=== PATIENT | female | born 1960 | race Caucasian/White ===

== ENCOUNTER 2017-04-10 16:44 | Inpatient (IN) | payer BC, OTHER ==
--- NOTE | 2017-04-10 19:39 | ED ---
Progress - Progress Note Progress Note: Assumed care at 1900. Pt undergoing MH eval. MH eval completed at 1936, accepted for admission after evaluation. Has been stable here. - Consult/PCP Time Called: 18:15 Course/Dx - Course Course Of Treatment: MH eval here. Accepted for admission and paperwork filed. - Diagnoses Provider Diagnoses: Suicidal ideation, Adjustment disorder with depressed mood
[2017-04-10] MEDS ORDERED: Nicotine Inhaler* 10 MG AMP INH ONE (20:00)
[2017-04-10] MEDS ORDERED: Mouth Piece, Nicotine* 1 EACH CARTRIDGE INH PRN (20:00)
[2017-04-10] MEDS ORDERED: Nicotine Inhaler* 10 MG AMP ONE (20:17)
[2017-04-10] MEDS ORDERED: Nicotine GUM* 2 MG PO PRN (20:31)
[2017-04-10] MEDS ORDERED: Mouth Piece, Nicotine* 1 EACH CARTRIDGE INH SCH (20:31)
[2017-04-10] MEDS ORDERED: Al Hydrox/Mg Hydrox/Simet LIQ* 30 ML UDC PO PRN (20:31)
[2017-04-10] MEDS ORDERED: Acetaminophen TAB* 325 MG PO PRN (20:31)
[2017-04-10] MEDS: cloNIDine TAB* 0.1 MG PO SCH (21:41)
[2017-04-10] MEDS: lamoTRIgine TAB(*) 100 MG PO SCH (21:41)
--- NOTE | 2017-04-10 21:41 | ED ---
Isi Dietz Jason, scribed for Layla Leonard MD on 04/10/17 at 1735 . Psychiatric Complaint - HPI Summary HPI Summary: This patient is a 56 year old F presenting to [facility] [place] ambulance from [place] [facility] for mental health evaluation with a chief complaint of depression and SI since a few months ago. The patient states her grandson and daughter live with her and she doesnt get along with them, including my grandson doesnt want to live with me. In February 2017 she states she took some pills of hers in a suicide gesture, but did not report it to anyone at the time and did not seek medical attention following this. Pt lives in [place] and has regular care with the mental health clinic in [place] and is compliant with taking medications of Lamictal and Clonidine and citalopram. She does not relate a specific incident that brought her to the [place] ED today other than family troubles. Regarding suicide, she states I think about it but I dont think I can do it. When asked if she had a plan for suicide, she stated she would take pills, crash my car, or use a razor. With respect to her family life, she states that last year her sons father committed suicide by overdosing on pills, her stepsister hung herself, and her grandsons father committed suicide using a gun. Additionally, her boyfriend suddenly in 2014. She also states she has had a tubal ligation and Lasik surgery. The patient rates the pain 0/10 in severity. Symptoms aggravated by social stresses. Symptoms alleviated by nothing. Pt states she has a remote hx of substance abuse and alcohol abuse in the but none in many years. Patient reports suicidal ideation, Increased urinary frequency, and urinary burning. Patient denies hematuria. Pt was initially brought to the [place] ED by her brother Wilber, and agrees to see her brother when he presents to the [facility]. Pt was evaluated in the [place] ED by ONI Berg, and transferred to [facility] after discussion with me by phone. Her labs and medical clearance were completed in [place] and pt was started on Cipro for a UTI by Ian BUNN. Pt was calm and cooperative but tearful throughout her [place] ED visit, transport by EMS and upon presentation to the [facility]. Pt's [place] records and labs were reviewed by me upon presentation to [facility]. [place] labs are not visible in [facility] but are available in print form for my review. - History Of Current Complaint Chief Complaint: EDMentalHealth Time Seen by Provider: 04/10/17 16:59 Hx Obtained From: Patient, Medical Records, Other: - discussion with Ian BUNN, provider in [place] ED. ?: No Onset/Duration: Gradual Onset - a few months, Worse Since - today Timing: Constant Severity Initially: Moderate Severity Currently: Severe Character: Depressed Aggravating Factor(s): Recent Stress - family life Alleviating Factor(s): Nothing Associated Signs And Symptoms: Positive: Appetite Change, Social Withdrawal Related History: Positive For: Prior Psychiatric Issues Has Suicidal: Reports: Thoughts, With A Plan Ingestion History: Type/Name Of Drug - clonidine, Amount Ingested - several, Approximate Time Of Ingestion - Feb 2017, none today - Allergies/Home Medications Allergies/Adverse Reactions: Allergies Allergy/AdvReac Type Severity Reaction Status Date / Time MS Sulfamethoxazole Allergy Rash Verified 10/02/14 07:59 w/Trimethoprim [From Bactrim] Home Medications: Home Medications Ciproflox/Dexameth OTIC.SUSP* [Ciprodex Otic*] 1 drop BOTH EYES BID 04/10/17 [ History Confirmed 04/10/17] cloNIDine TAB* [Catapres 0.1 MG TAB*] 0.1 mg PO BEDTIME 04/10/17 [History Confirmed 04/10/17] lamoTRIgine TAB(*) [LaMICtal TAB(*)] 200 mg PO BEDTIME 04/10/17 [History Confirmed 04/10/17] PMH/Surg Hx/FS Hx/Imm Hx Previously Healthy: No Musculoskeletal History: Reports: Other Musculoskeletal History - PLATE IN NECK IN 1999- DR CARROLL Sensory History: Reports: Hx Cataracts, Hx Contacts or Glasses - GLASSES Denies: Hx Hearing Aid Opthamlomology History: Reports: Hx Cataracts, Hx Contacts or Glasses - GLASSES Psychiatric History: Reports: Hx Anxiety - ON MEDS, Hx Depression - ON MEDS - Surgical History Surgery Procedure, Year, and Place: 1999- [facility] [place]. TUBAL LIGATION- [place] Hx Anesthesia Reactions: Yes - STATES TAKES AWHILE TO COME OUT OF IT; SOME VOMITING - Immunization History Date of Tetanus Vaccine: unknown Date of Influenza Vaccine: NO Infectious Disease History: No Infectious Disease History: Denies: Traveled Outside the [place] in Last 30 Days - Family History Known Family History: Positive: Hypertension, Diabetes, Other - cancer - Social History Lives: With Family Alcohol Use: None Substance Use Type: Reports: None Smoking Status (MU): Heavy Every Day Tobacco Smoker Amount Used/How Often: 1 PPD X40 YEARS Review of Systems Negative: Fever Cardiovascular: Negative Respiratory: Negative Gastrointestinal: Negative Positive: burning, frequency Skin: Negative Neurological: Negative Positive: Depressed, Other - SI All Other Systems Reviewed And Are Negative: Yes Physical Exam - Summary Physical Exam Summary: Appearance: depressed appearing, no pain distress, Well-nourished, tearful, poor eye contact, afebrile Skin: Warm, color reflects adequate perfusion Head: Normal Head/Face inspection Eyes: Conjunctiva clear ENT: Normal inspection Neck: Supple, no nodes, no JVD. Respiratory: Lungs clear, Normal breath sounds, no respiratory distress Cardio: RRR, No murmur, pulses normal, brisk capillary refill Abdomen: soft, nontender, No CVAT Bowel sounds: present Musculoskeletal: Strength Intact/ ROM intact. No calf tenderness. No edema. Neuro: Alert, muscle tone normal, facial symmetry, speech normal, sensory/motor intact Psychological: depressed Triage Information Reviewed: Yes Vital Signs On Initial Exam: Initial Vitals Temp Pulse Resp BP Pulse Ox 99.1 F 108 16 140/102 99 04/10/17 16:46 04/10/17 16:46 04/10/17 16:46 04/10/17 16:46 04/10/17 16:46 Vital Signs Reviewed: Yes Diagnostics - Vital Signs Vital Signs Temp Pulse Resp BP Pulse Ox 04/10/17 16:46 99.1 F 108 16 140/102 99 - Laboratory Lab Statement: Any lab studies that have been ordered have been reviewed, and results considered in the medical decision making process. Course/Dx - Course Course Of Treatment: Pt was cleared for a MHE at 1728. Medications reviewed. Allergies noted. Pt with depression not responding to outpatient medication and therapy, self reported medication overdose in Feb 2017 that was not previously reported to medical personnel, transferred from [facility] ED via EMS for worsening depression and suicidal ideation with a plan. Pt is signed out to Dr. Woods at 1900 04/10/17, pending mental health evaluation. Pt has UTI based on urinalysis and symptoms and was started on oral cipro at [facility]. She has no signs or symptoms of pyelonephritis or sepsis. UTI treatment can safely continued on U if pt is admitted. Pt is a smoker and requests nicotine replacement. - Differential Dx/Clinical Impression Differential Diagnosis/HQI/PQRI: Positive: Depression, Suicidal Ideation Provider Diagnosis: Suicidal ideation, Adjustment disorder with depressed mood, UTI (urinary tract infection) Discharge - Discharge Plan Condition: Fair Disposition: OTHER Discharge Disposition Comment: Patient is signed out to Dr. Woods , pending disposition, awaiting MHE Referrals: José Antonio Feng MD [Primary Care Provider] - The documentation as recorded by the Isi hill Jason accurately reflects the service I personally performed and the decisions made by me, Layla Leonard MD.
[2017-04-10] MEDS: Nicotine Inhaler* 10 MG AMP INH PRN (21:43)
[2017-04-11] MEDS: Vitamin THERAPEUTIC TAB PO SCH (08:00)
[2017-04-11] MEDS: Ciprofloxacin TAB* 500 MG PO SCH ×2 (08:00→22:44)
[2017-04-11] MEDS: Nicotine Inhaler* 10 MG AMP INH PRN ×5 (08:00→22:43)
[2017-04-11] MEDS ORDERED: Citalopram TAB* 20 MG PO SCH (09:00)
--- NOTE | 2017-04-11 11:36 | PN ---
MHU: Group Therapy Note - Service Type Service Type: [id number] Group Psychotherapy - Cognitive Behavioral Group Therapy ( CBT):Patient was attentive and participatory in CBT programming this morning, and remained in good behavioral control. Patient expressed positive insights regarding relevant treatment interventions and goals.
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
[2017-04-11] MEDS: lamoTRIgine TAB(*) 100 MG PO SCH (22:45)
[2017-04-11] MEDS: cloNIDine TAB* 0.1 MG PO SCH (22:45)
[2017-04-12] MEDS: Nicotine Inhaler* 10 MG AMP INH PRN ×4 (07:49→21:06)
[2017-04-12] MEDS: Ciprofloxacin TAB* 500 MG PO SCH ×2 (08:24→20:55)
[2017-04-12] MEDS: Vitamin THERAPEUTIC TAB PO SCH (08:24)
[2017-04-12] MEDS: Citalopram TAB* 40 MG PO SCH (08:26)
[2017-04-12] MEDS ORDERED: Influenza VAC *QUAD* 2017-18* 0.5 ML SYRINGE IM ONE (09:00)
--- NOTE | 2017-04-12 11:13 | PN ---
MHU: Group Therapy Note - Service Type Service Type: [id number] Group Psychotherapy - Cognitive Behavioral Group Therapy ( CBT):Patient was attentive and participatory in CBT programming this morning, and remained in good behavioral control. Patient expressed positive insights regarding relevant treatment interventions and goals.
[2017-04-12] MEDS ORDERED: hydrOXYzine HCL TAB* 25 MG PO PRN (12:45)
--- NOTE | 2017-04-12 13:31 | PN ---
Subjective - Subjective Date of Service: 04/12/17 Service Type: [id number] Hosp care 15 min low complexity Subjective: Yvonne is sitting in the milieu by herself. Upon talking for a little while, she becomes tearful and begins to cry in earnest. She states she is worrying all the time and now the word "Satan" pops in her head now and then. It is alarming to her, as she is Confucianism and believes in God. She also complains of not sleeping very well. She states she can't get to sleep because her thoughts are racing. Objective - Appearance Appearance: Healthy Appearing Dysmorphic Features: No Hygiene: Normal Grooming: Fairly Well Kept - Behavior Psychomotor Activities: Normal Exhibits Abnormal Movement: No - Attitude and Relatedness Attitude and Relatedness: Needy Eye Contact: Good - Speech Quality: Unpressured Latencies: Normal Quantity: Appropriate - Mood Patient's Decription of Mood: "Anxious" - Affect Observed Affect: Tearful Affect Consistent with: Dysphoria - Thought Process Patient's Thought Process: Coherent Thought Content: No Passive Wish, No Suicidal Planning, No Homicidal Ideation, No Paranoid Ideation - Sensorium Experiencing Hallucinations: No, Sensorium is Clear Type of Hallucinations: Visual: No, Auditory: No, Command: No - Level of Consciousness Level of Consciousness: Alert Orientation: Yes Intact, Yes Orientated to Time, Yes Orientated to Place, Yes Orientated to Person - Impulse Control Impulse Control: Intact - Insight and Judgement Insight and Judgement: Fair - Group Participation Particating in Group Activities: Yes - Medication Management Medication Management Adherence: Yes - Additional Observations Comments: Yvonne is exhibiting symptoms of depression due in some part to situation. It is unclear whether these symptoms would resolve completely with financial solvency. Still, she has had a significant number of losses in her life and continues to grieve for those and current tragedies. Assessment - Assessment Merits Inpatient Hospitalization: For Immediate Safety Inpatient DSM-V Dx: F33.3 Clinical Impression: Yvonne is not yet improved, but she is compliant with medications and is motivated for improvement. She is also eager to return home, but as she dissolves into tears at the mention of discharge, she warrants more time here. Plan - Plan Treatment Plan: Name: YVONNE DORADO Birthdate: 1960 [id number] Continued Medication Management: Different Medication Medications: Current Medications Acetaminophen (Tylenol Tab*) 650 mg PO Q4H PRN PRN Reason: PAIN or TEMP > 101 F Al Hydrox/Mg Hydrox/Simethicone (Maalox Plus*) 30 ml PO Q4H PRN PRN Reason: INDIGESTION Ciprofloxacin (Cipro Tab*) 500 mg PO Q12HR [facility] Last Admin: 04/12/17 08:24 Dose: 500 mg Citalopram Hydrobromide (Celexa Tab*) 40 mg PO DAILY [facility] Last Admin: 04/12/17 08:26 Dose: 40 mg Clonidine HCl (Catapres Tab*) 0.1 mg PO BEDTIME [facility] Last Admin: 04/11/17 22:45 Dose: 0.1 mg Device (Nicotine Mouth Piece*) 1 each INH .[facility] Hydroxyzine HCl (Atarax Tab*) 25 mg PO Q4H PRN PRN Reason: ANXIETY Hydroxyzine HCl (Atarax Tab*) 50 mg PO BEDTIME [facility] Lamotrigine (Lamictal Tab(*)) 200 mg PO BEDTIME [facility] Last Admin: 04/11/17 22:45 Dose: 200 mg Multivitamins (Theragran Tab*) 1 tab PO DAILY [facility] Last Admin: 04/12/17 08:24 Dose: 1 tab Nicotine (Nicotine Inhaler*) 10 mg INH Q2H PRN PRN Reason: CRAVING Last Admin: 04/12/17 12:27 Dose: 10 mg Nicotine Polacrilex (Nicotine Gum*) 2 mg PO Q2H PRN PRN Reason: CRAVING - Discharge Plan Discharge Plan: Outpatient Follow Up Outpatient Program: [facility] Additional Comments: Yvonne currently needs to sleep and reduce her anxiety. With these more in control, she may be more able to manage her affairs at home and attain help with those tasks that she is unable to perform at this time.
[2017-04-12] MEDS: cloNIDine TAB* 0.1 MG PO SCH (20:55)
[2017-04-12] MEDS: hydrOXYzine HCL TAB* 50 MG PO SCH (20:55)
[2017-04-12] MEDS: lamoTRIgine TAB(*) 100 MG PO SCH (20:55)
[2017-04-13] MEDS: Vitamin THERAPEUTIC TAB PO SCH (07:30)
[2017-04-13] MEDS: Citalopram TAB* 40 MG PO SCH (07:30)
[2017-04-13] MEDS: Ciprofloxacin TAB* 500 MG PO SCH ×2 (07:30→21:09)
[2017-04-13] MEDS: Nicotine Inhaler* 10 MG AMP INH PRN ×6 (07:32→21:11)
--- NOTE | 2017-04-13 12:58 | PN ---
Subjective - Subjective Date of Service: 04/13/17 Service Type: [id number] Hosp care 15 min low complexity Subjective: Yvonne is walking around the unit, grateful to have a place to walk as she feels like she does a lot of sitting. She describes no suicidal thoughts and seems genuinely happy to report that. She is visibly less anxious, although she does describe some anxiety about financial issues, such as paying for food for her family. Yvonne slept well last night, perhaps due to the addition of hydroxyzine. She would like to go home to take care of her problems, which she states she is unable to do from here. Discussing some options she might have caused her to reduce anxiety, as well. Objective - Appearance Appearance: Well Developed/Nourished, Healthy Appearing Dysmorphic Features: No Hygiene: Normal Grooming: Fairly Well Kept - Behavior Psychomotor Activities: Normal Exhibits Abnormal Movement: No - Attitude and Relatedness Attitude and Relatedness: Cooperative Eye Contact: Good - Speech Quality: Unpressured Latencies: Normal Quantity: Appropriate - Mood Patient's Decription of Mood: "Good" - Affect Observed Affect: Non-labile - Thought Process Patient's Thought Process: Goal Directed Thought Content: No Passive Wish, No Suicidal Planning, No Homicidal Ideation, No Paranoid Ideation - Sensorium Experiencing Hallucinations: No, Sensorium is Clear Type of Hallucinations: Visual: No, Auditory: No, Command: No - Level of Consciousness Level of Consciousness: Alert Orientation: Yes Intact, Yes Orientated to Time, Yes Orientated to Place, Yes Orientated to Person - Impulse Control Impulse Control: Intact - Insight and Judgement Insight and Judgement: Good - Group Participation Particating in Group Activities: Yes - Medication Management Medication Management Adherence: Yes - Additional Observations Comments: Yvonne is exhibiting symptoms of depression due in some part to situation. It is unclear whether these symptoms would resolve completely with financial solvency. Still, she has had a significant number of losses in her life and continues to grieve for those and current tragedies. Assessment - Assessment Merits Inpatient Hospitalization: For Ongoing Evaluation Inpatient DSM-V Dx: F33.3 Clinical Impression: Yvonne has improved. She is not tearful when talking about home, her daughter, her grandson or her stressors. Plan - Plan Treatment Plan: Name: YVONNE DORADO Birthdate: 1960 [id number] Medications: Current Medications Acetaminophen (Tylenol Tab*) 650 mg PO Q4H PRN PRN Reason: PAIN or TEMP > 101 F Al Hydrox/Mg Hydrox/Simethicone (Maalox Plus*) 30 ml PO Q4H PRN PRN Reason: INDIGESTION Ciprofloxacin (Cipro Tab*) 500 mg PO Q12HR [facility] Last Admin: 04/13/17 07:30 Dose: 500 mg Citalopram Hydrobromide (Celexa Tab*) 40 mg PO DAILY [facility] Last Admin: 04/13/17 07:30 Dose: 40 mg Clonidine HCl (Catapres Tab*) 0.1 mg PO BEDTIME [facility] Last Admin: 04/12/17 20:55 Dose: 0.1 mg Device (Nicotine Mouth Piece*) 1 each INH .[facility] [place] Hydroxyzine HCl (Atarax Tab*) 25 mg PO Q4H PRN PRN Reason: ANXIETY Hydroxyzine HCl (Atarax Tab*) 50 mg PO BEDTIME [facility] Last Admin: 04/12/17 20:55 Dose: 50 mg Lamotrigine (Lamictal Tab(*)) 200 mg PO BEDTIME [facility] Last Admin: 04/12/17 20:55 Dose: 200 mg Multivitamins (Theragran Tab*) 1 tab PO DAILY [facility] Last Admin: 04/13/17 07:30 Dose: 1 tab Nicotine (Nicotine Inhaler*) 10 mg INH Q2H PRN PRN Reason: CRAVING Last Admin: 04/13/17 12:41 Dose: 10 mg Nicotine Polacrilex (Nicotine Gum*) 2 mg PO Q2H PRN PRN Reason: CRAVING - Discharge Plan Additional Comments: Yvonne slept last night, thus hydroxyzine will be continued. Increased Celexa will also continue. In the future, she should receive help with referrals to entities that will help her with financial, social, and emotional fitness.
--- NOTE | 2017-04-13 13:30 | PN ---
MHU: Group Therapy Note - Service Type Service Type: [id number] Group Psychotherapy - Cognitive Behavioral Group Therapy ( CBT):Patient was attentive and participatory in CBT programming this morning, and remained in good behavioral control. Patient expressed positive insights regarding relevant treatment interventions and goals.
[2017-04-13] MEDS: lamoTRIgine TAB(*) 100 MG PO SCH (21:08)
[2017-04-13] MEDS: hydrOXYzine HCL TAB* 50 MG PO SCH (21:09)
[2017-04-13] MEDS: cloNIDine TAB* 0.1 MG PO SCH (21:10)
[2017-04-14] MEDS: Citalopram TAB* 40 MG PO SCH (07:29)
[2017-04-14] MEDS: Ciprofloxacin TAB* 500 MG PO SCH (07:29)
[2017-04-14] MEDS: Vitamin THERAPEUTIC TAB PO SCH (07:29)
[2017-04-14] MEDS: Nicotine Inhaler* 10 MG AMP INH PRN ×5 (07:31→20:51)
--- NOTE | 2017-04-14 13:09 | PN ---
Subjective - Subjective Date of Service: 04/14/17 Service Type: [id number] Hosp care 25 min moderate complexity Subjective: Yvonne was initially prepared to leave today, stating that she had so much to do at home and so much to take care of that she could not stay another day, despite both of us feeling like she could benefit. After that conversation, Fallon Alvarado spoke with her privately and Yvonne declared that she would, indeed , stay for another day. She was receptive to ideas of case management, continued therapy, and acquiring further support to accomplish her goals. Objective - Appearance Appearance: Healthy Appearing Dysmorphic Features: No Hygiene: Normal Grooming: Fairly Well Kept - Behavior Psychomotor Activities: Normal Exhibits Abnormal Movement: No - Attitude and Relatedness Attitude and Relatedness: Cooperative Eye Contact: Good - Speech Quality: Unpressured Latencies: Short Quantity: Appropriate - Mood Patient's Decription of Mood: not good - Affect Observed Affect: Tearful - Thought Process Patient's Thought Process: Coherent Thought Content: No Passive Wish, No Suicidal Planning, No Homicidal Ideation, No Paranoid Ideation - Sensorium Experiencing Hallucinations: No, Sensorium is Clear Type of Hallucinations: Visual: No, Auditory: No, Command: No - Level of Consciousness Level of Consciousness: Alert Orientation: Yes Intact, Yes Orientated to Time, Yes Orientated to Place, Yes Orientated to Person - Impulse Control Impulse Control: Intact - Insight and Judgement Insight and Judgement: Good - Group Participation Particating in Group Activities: Yes - Medication Management Medication Management Adherence: Yes - Additional Observations Comments: Yvonne is exhibiting symptoms of depression due in some part to situation. It is unclear whether these symptoms would resolve completely with financial solvency. Still, she has had a significant number of losses in her life and continues to grieve for those and current tragedies. Assessment - Assessment Inpatient DSM-V Dx: F33.3 Clinical Impression: Yvonne has improved. She is not tearful when talking about home, her daughter, her grandson or her stressors. Plan - Plan Treatment Plan: Name: YVONNE DORADO Birthdate: 1960 [id number] Medications: Current Medications Acetaminophen (Tylenol Tab*) 650 mg PO Q4H PRN PRN Reason: PAIN or TEMP > 101 F Al Hydrox/Mg Hydrox/Simethicone (Maalox Plus*) 30 ml PO Q4H PRN PRN Reason: INDIGESTION Ciprofloxacin (Cipro Tab*) 500 mg PO Q12HR [facility] Last Admin: 04/14/17 07:29 Dose: 500 mg Citalopram Hydrobromide (Celexa Tab*) 40 mg PO DAILY [facility] Last Admin: 04/14/17 07:29 Dose: 40 mg Clonidine HCl (Catapres Tab*) 0.1 mg PO BEDTIME [facility] Last Admin: 04/13/17 21:10 Dose: 0.1 mg Device (Nicotine Mouth Piece*) 1 each INH .[facility] Last Admin: 04/14/17 07:42 Dose: 1 each Hydroxyzine HCl (Atarax Tab*) 25 mg PO Q4H PRN PRN Reason: ANXIETY Hydroxyzine HCl (Atarax Tab*) 50 mg PO BEDTIME [facility] Last Admin: 04/13/17 21:09 Dose: 50 mg Lamotrigine (Lamictal Tab(*)) 200 mg PO BEDTIME [facility] Last Admin: 04/13/17 21:08 Dose: 200 mg Multivitamins (Theragran Tab*) 1 tab PO DAILY [facility] Last Admin: 04/14/17 07:29 Dose: 1 tab Nicotine (Nicotine Inhaler*) 10 mg INH Q2H PRN PRN Reason: CRAVING Last Admin: 04/14/17 11:04 Dose: 10 mg Nicotine Polacrilex (Nicotine Gum*) 2 mg PO Q2H PRN PRN Reason: CRAVING - Discharge Plan Additional Comments: Yvonne slept last night, thus hydroxyzine will be continued. Increased Celexa will also continue. In the future, she should receive help with referrals to entities that will help her with financial, social, and emotional fitness.
[2017-04-14] MEDS ORDERED: hydrOXYzine HCL TAB* 25 MG PO PRN (13:31)
--- NOTE | 2017-04-14 14:06 | PN ---
MHU: Group Therapy Note - Service Type Service Type: [id number] Group Psychotherapy - Cognitive Behavioral Group Therapy ( CBT):Patient was attentive and participatory in CBT programming this morning, and remained in good behavioral control. Patient expressed positive insights regarding relevant treatment interventions and goals.
--- NOTE | 2017-04-14 16:21 | PN ---
MHU: Group Therapy Note - Service Type Service Type: [id number] Group Psychotherapy - Medication Education Group: Patient was attentive and participatory in group, and remained in good behavioral control. Patient expressed positive insights regarding relevant treatment interventions. Patient stated understanding of material discussed and had appropriate questions.
[2017-04-14] MEDS: hydrOXYzine HCL TAB* 25 MG PO SCH (20:51)
[2017-04-14] MEDS: cloNIDine TAB* 0.1 MG PO SCH (20:51)
[2017-04-14] MEDS: lamoTRIgine TAB(*) 100 MG PO SCH (20:51)
[2017-04-15] MEDS: Citalopram TAB* 40 MG PO SCH (07:30)
[2017-04-15] MEDS: Vitamin THERAPEUTIC TAB PO SCH (07:30)
[2017-04-15] MEDS: Nicotine Inhaler* 10 MG AMP INH PRN ×5 (07:31→20:36)
[2017-04-15 14:15] LABS: ABS Basophils 0.1 10^3/ul (0-0.2); ABS Eosinophils 0.2 10^3/ul (0-0.6); ABS Lymphocytes 1.6 10^3/ul (1.0-4.8); ABS Monocytes 0.6 10^3/ul (0-0.8); ABS Neutrophils 5.3 10^3/ul (1.5-7.7); ABS Nucleated RBC 0 10^3/ul; Eosinophil % 2.6 % (0-6); Hematocrit 43 % (35-47); Hemoglobin 14.3 g/dl (12.0-16.0); Lymphocyte % 20.1 % (25-47); Mean Corpuscular HGB Conc 34 g/dl (31-36); Mean Corpuscular Hemoglobin 30 pg (27-31); Mean Corpuscular Volume 88 fL (80-97); Mean Platelet Volume 8 um3 (7.4-10.4); Nucleated Red Blood Cells % 0; Platelet Count 294 10^3/ul (150-450); Red Blood Count 4.83 10^6/ul (4.0-5.4); Red Cell Distribution Width 14 % (10.5-15); White Blood Count 7.7 10^3/ul (3.5-10.8)
[2017-04-15 14:30] LABS: EGFR Non-African American 58.5 (>60)
[2017-04-15 15:37] LABS: Urine Appearance Cloudy; Urine Blood Negative (Negative); Urine Color Yellow; Urine Ketones Negative (Negative); Urine Protein Negative (Negative); Urine Specific Gravity 1.014 (1.010-1.030); Urine Urobilinogen Negative (Negative)
--- NOTE | 2017-04-15 15:41 | PN ---
Subjective - Subjective Date of Service: 04/15/17 Service Type: [id number] Hosp care 15 min low complexity Subjective: Yvonne is still tearful today and waffles about whether she should stay another day, although she acknowledges the clear benefit of her remaining here; in the end, she decides to stay. Social work staff speak with her daughter and Yvonne is relieved by this. Yvonne seems to lack some energy to make decisions for herself. We will add Wellbutrin XL 150 mg to her regimen. She denies SI and HI and her main stressor appears to be the distress that is created for her by family and finances. Objective - Appearance Appearance: Thin Framed Dysmorphic Features: No Hygiene: Normal Grooming: Well Kept - Behavior Psychomotor Activities: Normal Exhibits Abnormal Movement: No - Attitude and Relatedness Attitude and Relatedness: Cooperative Eye Contact: Good - Speech Quality: Unpressured Latencies: Normal Quantity: Appropriate - Mood Patient's Decription of Mood: "Anxious" - Affect Observed Affect: Tearful - Thought Process Patient's Thought Process: Coherent Thought Content: No Passive Wish, No Suicidal Planning, No Homicidal Ideation, No Paranoid Ideation - Sensorium Type of Hallucinations: Visual: No, Auditory: No, Command: No - Level of Consciousness Level of Consciousness: Alert Orientation: Yes Intact, Yes Orientated to Time, Yes Orientated to Place, Yes Orientated to Person - Impulse Control Impulse Control: Intact - Insight and Judgement Insight and Judgement: Fair - Group Participation Particating in Group Activities: Yes - Medication Management Medication Management Adherence: Yes - Additional Observations Comments: Yvonne is exhibiting symptoms of depression due in some part to situation. It is unclear whether these symptoms would resolve completely with financial solvency. Still, she has had a significant number of losses in her life and continues to grieve for those and current tragedies. Assessment - Assessment Merits Inpatient Hospitalization: For Stabilization Inpatient DSM-V Dx: F33.3 Clinical Impression: Yvonne has improved. She is mildly tearful when talking about home, her daughter , her grandson, or her stressors. Plan - Plan Treatment Plan: Name: YVONNE DORADO Birthdate: 1960 [id number] Continued Medication Management: Start Medication Medications: Current Medications Acetaminophen (Tylenol Tab*) 650 mg PO Q4H PRN PRN Reason: PAIN or TEMP > 101 F Al Hydrox/Mg Hydrox/Simethicone (Maalox Plus*) 30 ml PO Q4H PRN PRN Reason: INDIGESTION Bupropion HCl (Wellbutrin Xl *) 150 mg PO QAM [facility] PRN Reason: Protocol Citalopram Hydrobromide (Celexa Tab*) 40 mg PO DAILY [facility] Last Admin: 04/15/17 07:30 Dose: 40 mg Clonidine HCl (Catapres Tab*) 0.1 mg PO BEDTIME [facility] Last Admin: 04/14/17 20:51 Dose: 0.1 mg Device (Nicotine Mouth Piece*) 1 each INH .[facility] Last Admin: 04/14/17 07:42 Dose: 1 each Hydroxyzine HCl (Atarax Tab*) 25 mg PO BEDTIME [facility] Last Admin: 04/14/17 20:51 Dose: 25 mg Hydroxyzine HCl (Atarax Tab*) 25 mg PO ONCE PRN PRN Reason: INSOMNIA Lamotrigine (Lamictal Tab(*)) 200 mg PO BEDTIME [facility] Last Admin: 04/14/17 20:51 Dose: 200 mg Multivitamins (Theragran Tab*) 1 tab PO DAILY [facility] Last Admin: 04/15/17 07:30 Dose: 1 tab Nicotine (Nicotine Inhaler*) 10 mg INH Q2H PRN PRN Reason: CRAVING Last Admin: 04/15/17 13:05 Dose: 10 mg Nicotine Polacrilex (Nicotine Gum*) 2 mg PO Q2H PRN PRN Reason: CRAVING - Discharge Plan Discharge Plan: Outpatient Follow Up Outpatient Program: [facility] Additional Comments: Yvonne slept last night, thus hydroxyzine will be continued. Increased Celexa will also continue. In the future, she should receive help with referrals to entities that will help her with financial, social, and emotional fitness.
[2017-04-15] MEDS: hydrOXYzine HCL TAB* 25 MG PO SCH (20:33)
[2017-04-15] MEDS: lamoTRIgine TAB(*) 100 MG PO SCH (20:34)
[2017-04-15] MEDS: cloNIDine TAB* 0.1 MG PO SCH (20:34)
[2017-04-16] MEDS: Vitamin THERAPEUTIC TAB PO SCH (08:23)
[2017-04-16] MEDS: Citalopram TAB* 40 MG PO SCH (08:23)
[2017-04-16] MEDS: BuPROPion XL* 150 MG TAB.XL PO SCH (08:23)
[2017-04-16] MEDS: Nicotine Inhaler* 10 MG AMP INH PRN ×5 (08:24→19:06)
[2017-04-16] MEDS ORDERED: Mouth Piece, Nicotine* 1 EACH CARTRIDGE ONE (10:02)
--- NOTE | 2017-04-16 13:47 | PN ---
Subjective - Subjective Date of Service: 04/16/17 Subjective: Yvonne is in the milieu with her brother who is visiting. Tired all the time. Somewhat worried about going back home due to her daughter. Slept weel and eating good she reports. Denies SI, HI or psychosis. Tolerate Wellbutrin well although didn't see any difference. Objective - Appearance Appearance: Thin Framed Dysmorphic Features: No Hygiene: Normal Grooming: Fairly Well Kept - Behavior Psychomotor Activities: Abnormal-Decreased - Attitude and Relatedness Attitude and Relatedness: Appropriate Eye Contact: Fair - Speech Quality: Unpressured Latencies: Normal Quantity: Appropriate - Mood Patient's Decription of Mood: "Anxious" - Affect Observed Affect: Depressed - Thought Process Patient's Thought Process: Coherent, Goal Directed Thought Content: No Passive Wish, No Suicidal Planning, No Homicidal Ideation, No Paranoid Ideation - Sensorium Experiencing Hallucinations: No, Sensorium is Clear Type of Hallucinations: Visual: No, Auditory: No, Command: No - Level of Consciousness Orientation: Yes Intact, Yes Orientated to Time, Yes Orientated to Place, Yes Orientated to Person - Impulse Control Impulse Control: Intact - Insight and Judgement Insight and Judgement: Fair - Group Participation Particating in Group Activities: Yes - Medication Management Medication Management Adherence: Yes Assessment - Assessment Merits Inpatient Hospitalization: Consolidate Improvements, Pending Safe DC Plan Inpatient DSM-V Dx: F33.3 Plan - Plan Treatment Plan: Name: YVONNE DORADO Birthdate: 1960 [id number] Continued Medication Management: Continue Outpt Medication Medications: Current Medications Acetaminophen (Tylenol Tab*) 650 mg PO Q4H PRN PRN Reason: PAIN or TEMP > 101 F Al Hydrox/Mg Hydrox/Simethicone (Maalox Plus*) 30 ml PO Q4H PRN PRN Reason: INDIGESTION Bupropion HCl (Wellbutrin Xl *) 150 mg PO QAM [facility] PRN Reason: Protocol Last Admin: 04/16/17 08:23 Dose: 150 mg Citalopram Hydrobromide (Celexa Tab*) 40 mg PO DAILY [facility] Last Admin: 04/16/17 08:23 Dose: 40 mg Clonidine HCl (Catapres Tab*) 0.1 mg PO BEDTIME [facility] Last Admin: 04/15/17 20:34 Dose: 0.1 mg Device (Nicotine Mouth Piece*) 1 each INH .[facility] Last Admin: 04/14/17 07:42 Dose: 1 each Hydroxyzine HCl (Atarax Tab*) 25 mg PO BEDTIME [facility] Last Admin: 04/15/17 20:33 Dose: 25 mg Hydroxyzine HCl (Atarax Tab*) 25 mg PO ONCE PRN PRN Reason: INSOMNIA Lamotrigine (Lamictal Tab(*)) 200 mg PO BEDTIME [facility] Last Admin: 04/15/17 20:34 Dose: 200 mg Multivitamins (Theragran Tab*) 1 tab PO DAILY [facility] Last Admin: 04/16/17 08:23 Dose: 1 tab Nicotine (Nicotine Inhaler*) 10 mg INH Q2H PRN PRN Reason: CRAVING Last Admin: 04/16/17 10:58 Dose: 10 mg Nicotine Polacrilex (Nicotine Gum*) 2 mg PO Q2H PRN PRN Reason: CRAVING - Discharge Plan Discharge Plan: Outpatient Follow Up Outpatient Program: [facility]
[2017-04-16] MEDS: lamoTRIgine TAB(*) 100 MG PO SCH (20:29)
[2017-04-16] MEDS: hydrOXYzine HCL TAB* 25 MG PO SCH (20:29)
[2017-04-16] MEDS: cloNIDine TAB* 0.1 MG PO SCH (20:29)
[2017-04-17] MEDS: Nicotine Inhaler* 10 MG AMP INH PRN ×5 (07:39→20:38)
[2017-04-17] MEDS: BuPROPion XL* 150 MG TAB.XL PO SCH (08:51)
[2017-04-17] MEDS: Vitamin THERAPEUTIC TAB PO SCH (08:51)
[2017-04-17] MEDS: Citalopram TAB* 40 MG PO SCH (08:51)
[2017-04-17] MEDS: cloNIDine TAB* 0.1 MG PO SCH (20:34)
[2017-04-17] MEDS: lamoTRIgine TAB(*) 100 MG PO SCH (20:35)
[2017-04-17] MEDS: hydrOXYzine HCL TAB* 25 MG PO SCH (20:35)
[2017-04-18] MEDS: Citalopram TAB* 40 MG PO SCH (07:53)
[2017-04-18] MEDS: BuPROPion XL* 150 MG TAB.XL PO SCH (07:53)
[2017-04-18] MEDS: Vitamin THERAPEUTIC TAB PO SCH (07:53)
[2017-04-18 07:55] VITALS: BP 116/76
[2017-04-18] MEDS: Nicotine Inhaler* 10 MG AMP INH PRN ×3 (07:55→12:21)
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
== END 2017-04-18 13:30 | disposition home or self-care (01) | DRG 751 ==
LOC: ED 16:44 → BSU 21:19
PROVIDERS: ADMIT Psychiatry & Neurology Psychiatry; ATTEND Psychiatry & Neurology Psychiatry
DX: F33.3 Major depressive disorder, recurrent, severe with psychotic symptoms (principal); R45.851 Suicidal ideations; F41.1 Generalized anxiety disorder; F17.210 Nicotine dependence, cigarettes, uncomplicated; M50.30 Other cervical disc degeneration, unspecified cervical region; Z80.49 Family history of malignant neoplasm of other genital organs; Z88.1 Allergy status to other antibiotic agents; Z81.8 Family history of other mental and behavioral disorders; Z79.899 Other long term (current) drug therapy
CPT/HCPCS: 36415; 80053; 81003; 81015; 84439; 84443; 85025; 87077; 87086; 87186; 90853; 99222; 99231; 99232; 99238; 99284; A9270-GY

== ENCOUNTER 2017-07-08 02:52 | Emergency (ER) | payer SELFPAY ==
[2017-07-08 03:05] VITALS: BP 156/94
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
== END 2017-07-08 04:28 | disposition home or self-care (01) ==
LOC: ED 02:52
DX: F41.0 Panic disorder [episodic paroxysmal anxiety] (principal); F43.20 Adjustment disorder, unspecified; F17.210 Nicotine dependence, cigarettes, uncomplicated; Z88.3 Allergy status to other anti-infective agents
CPT/HCPCS: 99282

== ENCOUNTER 2018-08-16 16:06 | Inpatient (IN) | payer BC, OTHER ==
--- NOTE | 2018-08-16 17:15 | ED ---
Psychiatric Complaint - HPI Summary HPI Summary: Pt is a 58 y/o F presenting to [facility] with a CC of depression. She states that she started feeling depressed around [place] and the feeling has progressed since. She states that she has had SI with pills but states that she has not actively used the pills. She denies any HI. She currently lives by herself and states that she is having a hard time. She is currently trying to sell her house and move to an area with more people. She states that she is overwhelmed with the move and that she cant get myself to do anything. She states that she eats one meal a day which has not always been the case during this episode. She states that she has no active physical health problems or alleviating factors. - History Of Current Complaint Chief Complaint: EDSuicidal Time Seen by Provider: 08/16/18 16:50 Hx Obtained From: Patient Onset/Duration: Gradual Onset, Lasting Weeks - present since [place] time, Still Present, Worse Since Timing: Constant Severity Initially: Moderate Severity Currently: Severe Character: Depressed Aggravating Factor(s): Recent Stress - pt is moving, made the depression worse Alleviating Factor(s): Nothing Associated Signs And Symptoms: Positive: Appetite Change - eats one meal a day Related History: Positive For: Prior Psychiatric Issues Has Suicidal: Reports: Thoughts, With A Plan Has Homicidal: Denies: Thoughts, With A Plan - Allergies/Home Medications Allergies/Adverse Reactions: Allergies Allergy/AdvReac Type Severity Reaction Status Date / Time sulfamethoxazole Allergy Intermediate Rash Verified 08/16/18 16:13 [From Bactrim] trimethoprim [From Bactrim] Allergy Intermediate Rash Verified 08/16/18 16:13 PMH/Surg Hx/FS Hx/Imm Hx Previously Healthy: No Respiratory History: Reports: Hx Chronic Obstructive Pulmonary Disease (COPD) GI History: Comment Only: Hx Gall Bladder Disease - removed History: Comment Only: Other Problems/Disorders - bladder infection Musculoskeletal History: Reports: Other Musculoskeletal History - PLATE IN NECK IN 1999- DR CARROLL Sensory History: Reports: Hx Cataracts, Hx Contacts or Glasses Denies: Hx Hearing Aid Opthamlomology History: Reports: Hx Cataracts, Hx Contacts or Glasses Neurological History: Reports: Hx Headaches Psychiatric History: Reports: Hx Anxiety, Hx Depression, Hx Community Mental Health Tx, Hx Bipolar Disorder Denies: Hx Eating Disorder - Surgical History Surgery Procedure, Year, and Place: 1999- [facility]- fusion IN NECK. TUBAL LIGATION- [place]. gall bladder removal Hx Anesthesia Reactions: Yes - STATES TAKES AWHILE TO COME OUT OF IT; SOME VOMITING - Immunization History Date of Tetanus Vaccine: unknown Date of Influenza Vaccine: NO Infectious Disease History: No Infectious Disease History: Denies: Traveled Outside the [place] in Last 30 Days - Family History Known Family History: Positive: Hypertension, Diabetes, Other - cancer - Social History Occupation: Retired Lives: Alone Alcohol Use: None Hx Substance Use: No Substance Use Type: Reports: None Hx Tobacco Use: Yes Smoking Status (MU): Heavy Every Day Tobacco Smoker Type: Cigarettes Amount Used/How Often: More than 1.5 packs/day Have You Smoked in the Last Year: Yes Review of Systems Constitutional: Negative Eyes: Negative ENT: Negative Cardiovascular: Negative Respiratory: Negative Gastrointestinal: Negative Genitourinary: Negative Musculoskeletal: Negative Skin: Negative Neurological: Negative Positive: Depressed - POSITIVE: SI, NEGATIVE: HI, Other All Other Systems Reviewed And Are Negative: Yes Physical Exam - Summary Physical Exam Summary: Appearance: Well-appearing, Well-nourished, lying in bed comfortable Skin: Warm, dry, no obvious rash Eyes: sclera anicteric, no conjunctival pallor ENT: mucous membranes moist Neck: deferred Respiratory: No signs of respiratory distress Cardiovascular: Appears well perfused, pulses are nml Abdomen: deferred Musculoskeletal: Moving all 4 extremities without obvious discomfort Neurological: Awake and alert, mentation is normal, speech is fluent and appropriate Psychiatric: affect is normal, does not appear anxious or depressed Triage Information Reviewed: Yes Vital Signs On Initial Exam: Initial Vitals Temp Pulse Resp BP Pulse Ox 98.6 F 79 16 173/95 98 08/16/18 16:09 08/16/18 16:09 08/16/18 16:09 08/16/18 16:09 08/16/18 16:09 Vital Signs Reviewed: Yes Diagnostics - Vital Signs Vital Signs Temp Pulse Resp BP Pulse Ox 08/16/18 16:09 98.6 F 79 16 173/95 98 - Laboratory Result Diagrams: 08/16/18 17:16 08/16/18 17:16 Lab Statement: Any lab studies that have been ordered have been reviewed, and results considered in the medical decision making process. Course/Dx - Course Course Of Treatment: Pt is a 58 y/o F presenting to [facility] with a CC of depression. She states that she started feeling depressed around [place] and the feeling has progressed since. She states that she has had SI with pills but states that she has not actively used the pills. She denies any HI. She received a limited normal PE which showed no abnormal findings. She was medically cleared for evaluation at 1700. The pt will be admitted voluntarily to [facility] with a Dx of depression per Dr. Hanson at 1750. - Differential Dx/Clinical Impression Provider Diagnosis: Major depressive disorder, recurrent, moderate - Physician Notifications Discussed Care Of Patient With: Grover Hanson Time Discussed With Above Provider: 17:50 Instructed by Provider To: Admit As Inpatient Discharge - Sign-Out/Discharge Documenting (check all that apply): Patient Departure - admitted volunatrily Patient Received Moderate/Deep Sedation with Procedure: No - Discharge Plan Condition: Stable [place] [place] Disposition and Condition Condition: STABLE Disposition[place] [facility] [place] Attestation Statements Document Initiated by Scribe: Yes Documenting Scribe: Keo Waller Provider For Whom Scribe is Documenting (Include Credential): Stone Puentes MD Scribe Attestation: Keo Dietz, marlaed for Stone Puentes MD on 08/18/18 at 0538. Scribe Documentation Reviewed: Yes Provider Attestation: The documentation as recorded by the Keo hill accurately reflects the service I personally performed and the decisions made by me, Stone Puentes MD Status of Scribe Document: Viewed
[2018-08-16 17:29] LABS: ABS Basophils 0.1 10^3/ul (0-0.2); ABS Eosinophils 0.2 10^3/ul (0-0.6); ABS Lymphocytes 1.9 10^3/ul (1.0-4.8); ABS Monocytes 0.5 10^3/ul (0-0.8); ABS Neutrophils 6.7 10^3/ul (1.5-7.7); Hematocrit 47 % (35-47); Hemoglobin 16.1 g/dL (12.0-16.0); Lymphocyte % 19.8 %; Mean Corpuscular HGB Conc 34 g/dL (31-36); Mean Corpuscular Hemoglobin 30 pg (27-31); Mean Corpuscular Volume 88 fL (80-97); Mean Platelet Volume 7.1 fL (7.4-10.4); Platelet Count 326 10^3/uL (150-450); Red Blood Count 5.36 10^6 /uL (3.70-4.87); Red Cell Distribution Width 14 % (10-15); White Blood Count 9.4 10^3/uL (3.5-10.8)
[2018-08-16 17:40] LABS: Urine Appearance Cloudy; Urine Bacteria 3+ (Absent); Urine Bilirubin Negative (Negative); Urine Blood Negative (Negative); Urine Color Yellow; Urine Glucose Negative (Negative); Urine Ketones Negative (Negative); Urine Nitrite Positive (Negative); Urine Protein Negative (Negative); Urine Red Blood Cell Absent (Absent); Urine Specific Gravity 1.015 (1.010-1.030); Urine Squamous Epithelial Cell Present (Absent); Urine Urobilinogen Negative (Negative); Urine White Blood Cell 3+(>20/hpf) (Absent)
[2018-08-16 17:52] LABS: ALT 17 U/L (7-52); AST 17 U/L (13-39); Albumin 4.6 g/dL (3.2-5.2); Albumin/Globulin Ratio 1.4 (1-3); Alkaline Phosphatase 76 U/L (34-104); Anion Gap 10 mmol/L (2-11); BUN/Creatinine Ratio 16.9 (8-20); Blood Urea Nitrogen 13 mg/dL (6-24); CO2 Carbon Dioxide 23 mmol/L (22-32); Calcium 10.5 mg/dL (8.6-10.3); Chloride 105 mmol/L (101-111); EGFR African American 92.8 (>60); EGFR Non-African American 76.7 (>60); Globulin 3.4 g/dL (2-4); Glucose 144 mg/dL (70-100); Potassium 3.7 mmol/L (3.5-5.0); Sodium 138 mmol/L (135-145)
[2018-08-16 18:01] LABS: Acetaminophen < 15 mcg/mL; Alcohol < 10 mg/dL (<10); Salicylate < 2.50 mg/dL (<30)
[2018-08-16 18:07] LABS: Urine Benzodiazepine Screen None Detected (None Detect); Urine Opiates Screen None Detected (None Detect)
[2018-08-16] MEDS ORDERED: Nicotine* 2MG (FRUIT FLAVOR) GUM PO ONE (18:08)
[2018-08-16] MEDS ORDERED: Nicotine* 2MG (FRUIT FLAVOR) GUM PO PRN (18:14)
[2018-08-16 18:15] LABS: TSH (Thyroid Stimulating Horm) 0.87 mcIU/mL (0.34-5.60)
[2018-08-16] MEDS: lamoTRIgine TAB(*) 100 MG PO SCH (21:06)
[2018-08-16] MEDS: hydrOXYzine HCL TAB* 25 MG PO SCH (21:06)
[2018-08-16] MEDS: Nicotine* 2MG (FRUIT FLAVOR) GUM PO PRN ×2 (22:01→23:29)
[2018-08-16] MEDS: Acetaminophen TAB* 325 MG PO PRN (23:27)
[2018-08-17] MEDS: Multivitamins/Minerals TAB PO SCH (07:46)
[2018-08-17] MEDS: Citalopram TAB* 40 MG PO SCH (07:46)
[2018-08-17] MEDS: Nicotine* 2MG (FRUIT FLAVOR) GUM PO PRN ×5 (07:46→20:40)
--- NOTE | 2018-08-17 11:30 | PN ---
BSU: Group Therapy Note - Service Type Service Type: [id number] Group Psychotherapy - Cognitive Behavioral Group Therapy ( CBT):Patient was attentive and participatory in CBT programming this morning, and remained in good behavioral control. Patient expressed positive insights regarding relevant treatment interventions and goals.
[2018-08-17] MEDS: Acetaminophen TAB* 325 MG PO PRN (15:18)
[2018-08-17] MEDS: lamoTRIgine TAB(*) 100 MG PO SCH (20:36)
[2018-08-17] MEDS: hydrOXYzine HCL TAB* 25 MG PO SCH (20:37)
--- NOTE | 2018-08-17 22:24 | HP ---
CONTINUATION ADDENDUM NOW INCLUDED ON THIS REPORT HISTORY AND PHYSICAL: DATE OF ADMISSION: 08/16/18 PROVIDER: Sofia Kilpatrick NP, in Psychiatry. SUPERVISING PHYSICIAN: Dr. Jimenez Simmons.* (DICTATED BY SOFIA KILPATRICK NP) JUSTIFICATION FOR ADMISSION: Norah is suicidal and is having disorganized thoughts and requires 24-hour supervision and care. CHIEF COMPLAINT: "I am overwhelmed with a lot of stuff going on in my house." HISTORY OF PRESENT ILLNESS: Norah is a 58-year-old white female who lives alone at this point, who is brought to the emergency room by law enforcement in [facility] after a 9.45 was issued for her by the [facility]. Apparently, Norah has "skipped a few appointments" with her therapist at [facility] and that when she called her therapist to cancel again, the therapist said "if I didn't come in, they would send a deputy, so I went in." Norah is living alone for the first time in years. She has a son, who she has not seen in over a year due to him being in [facility]. She states he is considered incompetent legally and he is not improving and he would not take medications. She is selling her home due to financial debt and she is going to instead spend less money and have money from her house if she moves to a 1-bedroom apartment. She states that this problem has been going on since [place] time and her son is the reason for it. She felt alone and sad and depressed and that led her to have suicidal thoughts at that time. They have continued until this time. Her sleep has increased during the day. She cannot sleep at night. She gets in bed by 9 or 10 p.m. and cannot sleep, so she will take hydroxyzine at times and then wake up in the morning at 8:30. She states she has a glass of water and goes back to bed and this cycle can repeat a few times. On a positive note, she does go to visit her cousin because she cannot stand to be in the house alone. CONTINUATION ADDENDUM: HISTORY OF PRESENT ILLNESS: Norah is having sleep disturbances, her interest is low as demonstrated by her unwillingness to do her chores around the house and take a shower. She feels guilty about it. Her energy is low. She cannot concentrate. She eats very little. She has psychomotor retardation, suicidal ideation, and is hallucinating the word Satan from time to time that pops in her head. PAST PSYCHIATRIC HISTORY: Norah has been seen here at this hospital on the behavioral services unit in March 2017. In February of the same year, she overdosed, but did not go to the hospital for that. She has providers in [facility]. She sees Veronica as her FURNACE ROASTER. She sees Yareli as her therapist. Dr. Holbrook is her primary care provider. She takes Lamictal and Celexa. She also believes that she takes hydroxyzine and lisinopril. 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 She had a financial settlement at that time and money is gone. She worked there almost 20 years. She has had her gallbladder removed. She has had abnormal cells in her cervix. Her mother of cervical cancer in 1990 at age 49. MEDICATIONS: She is takin. Celexa 20 mg. 2. Lamictal 200 mg. 3. Hydroxyzine. ALLERGIES: She has a BACTRIM allergy and she has in the last two years lost a significant amount of weight. FAMILY PSYCHIATRIC HISTORY: She has a significant past psychiatric history of suicides in the family. Her former son-in-law suicided in 2009 using a gun. Her son's father suicided using pills. Her stepsister suicided by hanging herself from a tree. SOCIAL HISTORY: She worked at [employer] for 20 years in [place] and here at [facility] [facility] [facility] [facility] in dining many years ago. 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 She has a plate in her neck. She has settled with [employer] and the money is gone. Deshaun, who is her former boyfriend who in 2014, his life insurance has been paying out money that will stop when she turned 61. She also had life insurance and she has gone through that. She has a bank loan of 9000 dollars because she was scammed on Facebook and also apparently has 13,000 dollars in debt because she loaned to friends of her and they have not paid her back. REVIEW OF SYSTEMS: Norah reports feeling fatigued. She denied shortness of breath, heat or cold intolerance, chest pain or abdominal pain. She denies neurological symptoms. She denies fevers or changes in weight that are recent. PHYSICAL EXAMINATION APPEARANCE: Well appearing, well nourished, sitting in a chair comfortably. VITAL SIGNS: On 08/18/18, at 0800, temperature was 97.1, pulse 78, respirations 16, O2 sat on room air 97%, blood pressure 137/77. HEENT: Eyes: sclerae anicteric, no conjunctival pallor. ENT: Mucous membranes moist. NECK: Deferred. RESPIRATORY: No signs of respiratory distress. CARDIOVASCULAR: Appears well perfused. Pulses are normal. ABDOMEN: Deferred. MUSCULOSKELETAL: Moving all extremities without obvious discomfort. NEUROLOGIC: Awake and alert. Mentation is normal. Speech is fluent and appropriate. SKIN: Warm and dry with no obvious rashes. LABORATORY DATA: On 08/16/18 at 1716, laboratory data was largely within normal limits. Exceptions included red blood cells high at 5.36, hemoglobin high at 16.1, MPV low at 7.1. Glucose high at 144, calcium high at 10.5. Urine is positive for nitrite, leukocyte esterase, white blood cells, squamous epithelial cells, and bacteria at 3+. Toxicology screen show no detection of drugs of abuse. Microbiology shows E. coli in the urine. Norah is reasonably well groomed. She is upset and she cries and she finds it difficult to stop crying. Her eye contact is good. She is sad and upset. Her interaction is good. She is pleasant to talk to, although so tearful at times that she does not seem to be able to actually hear what is being said. She does not have pressured speech, but she does speak quickly. She is dysthymic and tearful. She says she is always thinking about something and she is worried about the voice in her head that says "Satan" from time to time. She describes her thought rate as rapid. Norah is not homicidal or suicidal today. This is the first day that she has not been suicidal and she states that's because she is in a safe environment. She denies visual hallucinations. Her insight is fair. Her judgment is fair. She is alert and awake and oriented x4. She is of average intellect. DIAGNOSIS: Major depressive disorder, recurrent. IMPRESSION: Norah is 58-year-old woman with a prior diagnosis of major depressive disorder, who comes to the hospital after having missed appointments at [facility] and then being 9.45 from there. She has had suicidal ideation and is hopeless and helpless in many regards. PLAN: The patient is admitted to the adult behavioral health unit and placed on q.15-minute checks for her own safety. She is encouraged to participate in supportive milieu, individual and group therapies. Her estimated length of stay is 5 to 7 days. We will titrate medications to efficacy and monitor her mood and thought content. Discharge planning will involve outpatient providers. SOFIA KILPATRICK NP [id number]/CPS #: [id number]/CPS #: [id number] ELZA
[2018-08-18] MEDS: Al Hydrox/Mg Hydrox/Simet LIQ* 30 ML UDC PO PRN ×3 (00:20→21:21)
[2018-08-18] MEDS: Nicotine* 2MG (FRUIT FLAVOR) GUM PO PRN ×2 (00:20→02:25)
[2018-08-18] MEDS: Multivitamins/Minerals TAB PO SCH (09:20)
[2018-08-18] MEDS: Citalopram TAB* 40 MG PO SCH (09:20)
--- NOTE | 2018-08-18 13:06 | HP ---
HISTORY AND PHYSICAL: ADDENDUM: DATE OF ADMISSION: 08/16/18 HISTORY OF PRESENT ILLNESS: Norah is having sleep disturbances, her interest is low as demonstrated by her unwillingness to do her chores around the house and take a shower. She feels guilty about it. Her energy is low. She cannot concentrate. She eats very little. She has psychomotor retardation, suicidal ideation, and is hallucinating the word Satan from time to time that pops in her head. PAST PSYCHIATRIC HISTORY: Norah has been seen here at this hospital on the behavioral services unit in March 2017. In February of the same year, she overdosed, but did not go to the hospital for that. She has providers in [facility]. She sees Veronica as her TRAINING PERSONNEL SUPERVISOR. She sees Yareli as her therapist. Dr. Holbrook is her primary care provider. She takes Lamictal and Celexa. She also believes that she takes hydroxyzine and lisinopril. 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 She had a financial settlement at that time and money is gone. She worked there almost 20 years. She has had her gallbladder removed. She has had abnormal cells in her cervix. Her mother apparently of cervical cancer in 1990 at age 49. MEDICATIONS: She is takin. Celexa 20 mg. 2. Lamictal 200 mg. 3. Hydroxyzine. ALLERGIES: She has a BACTRIM allergy and she has in the last two years lost a significant amount of weight. FAMILY PSYCHIATRIC HISTORY: She has a significant past psychiatric history of suicides in the family. Her former son-in-law suicided in 2009 using a gun. Her son's father suicided using pills. Her stepsister suicided by hanging herself from a tree. SOCIAL HISTORY: She worked at [employer] for 20 years in [employer] and here at [facility] in dining many years ago. 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 She has a plate in her neck. She has settled with [employer] and the money is gone. Deshaun, who is her former boyfriend who in 2014, his life insurance has been paying out money that will stop when she turned 61. She also had life insurance and she has gone through that. She has a bank loan of 9000 dollars because she was scammed on Facebook and also apparently has 13,000 dollars in debt because she loaned to friends of her and they have not paid her back. REVIEW OF SYSTEMS: Norah reports feeling fatigued. She denied shortness of breath, heat or cold intolerance, chest pain or abdominal pain. She denies neurological symptoms. She denies fevers or changes in weight that are recent. PHYSICAL EXAMINATION APPEARANCE: Well appearing, well nourished, sitting in a chair comfortably. VITAL SIGNS: On 08/18/18, at 0800, temperature was 97.1, pulse 78, respirations 16, O2 sat on room air 97%, blood pressure 137/77. HEENT: Eyes: sclerae anicteric, no conjunctival pallor. ENT: Mucous membranes moist. NECK: Deferred. RESPIRATORY: No signs of respiratory distress. CARDIOVASCULAR: Appears well perfused. Pulses are normal. ABDOMEN: Deferred. MUSCULOSKELETAL: Moving all extremities without obvious discomfort. NEUROLOGIC: Awake and alert. Mentation is normal. Speech is fluent and appropriate. SKIN: Warm and dry with no obvious rashes. LABORATORY DATA: On 08/16/18 at 1716, laboratory data was largely within normal limits. Exceptions included red blood cells high at 5.36, hemoglobin high at 16.1, MPV low at 7.1. Glucose high at 144, calcium high at 10.5. Urine is positive for nitrite, leukocyte esterase, white blood cells, squamous epithelial cells, and bacteria at 3+. Toxicology screen show no detection of drugs of abuse. Microbiology shows E. coli in the urine. Norah is reasonably well groomed. She is upset and she cries and she finds it difficult to stop crying. Her eye contact is good. She is sad and upset. Her interaction is good. She is pleasant to talk to, although so tearful at times that she does not seem to be able to actually hear what is being said. She does not have pressured speech. She does speak quickly. She is dysthymic and tearful. She says she is always thinking about something and she is worried about the voice in her head that says Satan from time to time. She describes her thought rate as rapid. Norah is not homicidal or suicidal today. This is the first day that she has not been suicidal because she is in a safe environment. She denies visual hallucinations. Her insight is fair. Her judgment is fair. She is alert and awake and oriented x4. She is of average intellect. DIAGNOSIS: Major depressive disorder, recurrent. IMPRESSION: Norah is 58-year-old woman with a prior diagnosis of major depressive disorder, who comes to the hospital after having missed appointments at [facility] and then being 9.45 from there. She has had suicidal ideation and is hopeless and helpless in many regards. PLAN: The patient is admitted to the adult behavioral health unit and placed on q.15-minute checks for her own safety. She is encouraged to participate in supportive milieu, individual and group therapies. Her estimated length of stay is 5 to 7 days. We will titrate medications to efficacy and monitor her mood and thought content. Discharge planning will involve outpatient providers. STEVE DON, PIERCE [id number]/[facility] #: [id number] ELZA
[2018-08-18] MEDS: Nicotine PATCH 21 MG/24 HR* PATCH TRANSDERM SCH (15:25)
[2018-08-18] MEDS: Nitrofurantoin Macrocrystals* 100 MG CAP PO SCH (17:19)
[2018-08-18] MEDS: lamoTRIgine TAB(*) 100 MG PO SCH (21:22)
[2018-08-18] MEDS: hydrOXYzine HCL TAB* 25 MG PO SCH (21:32)
[2018-08-18] MEDS: Nicotine Patch Removal NOTE FOLLOW UP SCH (21:32)
[2018-08-18] MEDS: LORazepam TAB(*) 1 MG PO PRN (21:54)
[2018-08-19] MEDS: Acetaminophen TAB* 325 MG PO PRN (01:26)
[2018-08-19] MEDS: Al Hydrox/Mg Hydrox/Simet LIQ* 30 ML UDC PO PRN ×3 (01:27→21:00)
[2018-08-19] MEDS: Nicotine PATCH 21 MG/24 HR* PATCH TRANSDERM SCH (10:31)
[2018-08-19] MEDS: Citalopram TAB* 40 MG PO SCH (10:32)
[2018-08-19] MEDS: Nitrofurantoin Macrocrystals* 100 MG CAP PO SCH ×2 (10:32→21:38)
[2018-08-19] MEDS: Multivitamins/Minerals TAB PO SCH (10:32)
--- NOTE | 2018-08-19 11:01 | PN ---
Subjective - Subjective Date of Service: 08/18/18 Service Type: 19858 Hosp care 15 min low complexity Subjective: Yvonne feels much better. She is brighter and has plans to accomplish things such as paying her bills/mortgage and getting ready to sell her house. She smiles and is happy to tell me about her day and also advocates for sleep medication. She states the hydroxyzine that has been ordered is not helpful. Ativan will be added at bedtime for the time she is in the hospital. Objective - General Observations Appearance: Disheveled Appears Stated Age: Yes Stature: WNL Posture: WNL Eye Contact: Average Behavior/Activity: WNL - Interaction Observations Attitude Towards Examiner: Cooperative, Anxious Stated Mood: Euthymic, Anxious Affect: Incongruent Speech Pattern/Tone: Clear Thought Process: Coherent Perception: WNL Thought Content: Preoccupation/Ruminations Hallucination Type: None Delusion Type: None - Cognitive Function Orientation: A&O x 4 Level of Consciousness: Awake, Alert, Appropriate Cognition: WNL Estimated Intelligence: Normal Insight: WNL Judgment Within Normal Limits: No Ability to Make Reasonable Decisions: Mildly Impaired - Medication Compliance Cooperative with Inpatient Medication Regimen: Yes - Group Participation Participates in Group Activities: Yes Assessment - Assessment Merits Inpatient Hospitalization: For Immediate Safety, For Discharge Planning Clinical Impression: Yvonne is a 58-year-old woman with a history of one psychiatric hospitalization and a diagnosis of major depressive disorder who comes to the hospital with suicidal ideation in the context of financial stressors and social isolation. Plan - Plan Treatment Plan: Name: YVONNE DORADO Birthdate: 1960 [id number] Start Ativan at bedtime. Continue other medications. Encourage socialization. Continued Medication Management: Different Medication Medications: Current Medications Acetaminophen (Tylenol Tab*) 650 mg PO Q4H PRN PRN Reason: PAIN; OR TEMP >101 Last Admin: 08/19/18 01:26 Dose: 650 mg Al Hydrox/Mg Hydrox/Simethicone (Maalox Plus*) 30 ml PO Q4H PRN PRN Reason: INDIGESTION Last Admin: 08/19/18 01:27 Dose: 30 ml Citalopram Hydrobromide (Celexa Tab*) 40 mg PO DAILY [facility] Last Admin: 08/19/18 10:32 Dose: 40 mg Hydroxyzine HCl (Atarax Tab*) 25 mg PO BEDTIME [facility] Last Admin: 08/18/18 21:32 Dose: Not Given Lamotrigine (Lamictal Tab(*)) 250 mg PO BEDTIME [facility] Last Admin: 08/18/18 21:22 Dose: 250 mg Lorazepam (Ativan Tab(*)) 1 mg PO BEDTIME PRN PRN Reason: INSOMNIA Last Admin: 08/18/18 21:54 Dose: 1 mg Multivitamins/Minerals (Theragran/Minerals Tab*) 1 tab PO DAILY [facility] Last Admin: 08/19/18 10:32 Dose: 1 tab Nicotine (Nicotine Patch 21 Mg/24 Hr*) 1 patch TRANSDERM DAILY [facility] Last Admin: 08/19/18 10:31 Dose: 1 patch Nicotine Polacrilex (Nicotine Gum*) 2 mg PO Q2H PRN PRN Reason: CRAVING Last Admin: 08/18/18 02:25 Dose: 2 mg Nitrofurantoin Macrocrystals (Macrodantin*) 100 mg PO 0900,2099 [facility] Last Admin: 08/19/18 10:32 Dose: 100 mg Pharmacy Profile Note (Nicotine Patch Removal Note*) 1 note FOLLOW UP 2099 [facility] Last Admin: 08/18/18 21:32 Dose: 1 note - Discharge Plan Discharge Plan: Outpatient Follow Up
--- NOTE | 2018-08-19 17:30 | PN ---
Subjective - Subjective Date of Service: 08/19/18 Service Type: 24787 Hosp care 25 min moderate complexity Subjective: Yvonne says she is feeling a lot better after having a good night sleep. Her anxiety has been better as well with the sleep med. Feels positive already and very involved with unit groups and other activities. Denies SI. Objective - General Observations Appearance: Neat Stature: WNL Posture: WNL Eye Contact: Average Behavior/Activity: WNL - Interaction Observations Attitude Towards Examiner: Cooperative Stated Mood: Euthymic Affect: Full Speech Pattern/Tone: Clear, Appropriate, Normal Volume Thought Process: Coherent, Goal Directed Perception: WNL Thought Content: WNL Hallucination Type: None Delusion Type: None - Cognitive Function Orientation: A&O x 4 Level of Consciousness: Awake, Alert, Appropriate Cognition: WNL Estimated Intelligence: Normal Insight: WNL Judgment Within Normal Limits: Yes - Medication Compliance Cooperative with Inpatient Medication Regimen: Yes - Group Participation Participates in Group Activities: Yes Assessment - Assessment Merits Inpatient Hospitalization: For Stabilization, Pending Safe DC Plan Plan - Plan Treatment Plan: Name: YVONNE DORADO Birthdate: 1960 [id number] Continued Medication Management: Continue Outpt Medication Medications: Current Medications Acetaminophen (Tylenol Tab*) 650 mg PO Q4H PRN PRN Reason: PAIN; OR TEMP >101 Last Admin: 08/19/18 01:26 Dose: 650 mg Al Hydrox/Mg Hydrox/Simethicone (Maalox Plus*) 30 ml PO Q4H PRN PRN Reason: INDIGESTION Last Admin: 08/19/18 12:42 Dose: 30 ml Citalopram Hydrobromide (Celexa Tab*) 40 mg PO DAILY MIL[facility] Last Admin: 08/19/18 10:32 Dose: 40 mg Hydroxyzine HCl (Atarax Tab*) 25 mg PO BEDTIME [facility] Last Admin: 08/18/18 21:32 Dose: Not Given Lamotrigine (Lamictal Tab(*)) 250 mg PO BEDTIME MILANA Last Admin: 08/18/18 21:22 Dose: 250 mg Lorazepam (Ativan Tab(*)) 1 mg PO BEDTIME PRN PRN Reason: INSOMNIA Last Admin: 08/18/18 21:54 Dose: 1 mg Multivitamins/Minerals (Theragran/Minerals Tab*) 1 tab PO DAILY MILANA Last Admin: 08/19/18 10:32 Dose: 1 tab Nicotine (Nicotine Patch 21 Mg/24 Hr*) 1 patch TRANSDERM DAILY [facility] Last Admin: 08/19/18 10:31 Dose: 1 patch Nicotine Polacrilex (Nicotine Gum*) 2 mg PO Q2H PRN PRN Reason: CRAVING Last Admin: 08/18/18 02:25 Dose: 2 mg Nitrofurantoin Macrocrystals (Macrodantin*) 100 mg PO 899,2099 [facility] Last Admin: 08/19/18 10:32 Dose: 100 mg Pharmacy Profile Note (Nicotine Patch Removal Note*) 1 note FOLLOW UP 2099 [facility] Last Admin: 08/18/18 21:32 Dose: 1 note - Discharge Plan Discharge Plan: Outpatient Follow Up Outpatient Program: [facility]
[2018-08-19] MEDS ORDERED: lamoTRIgine TAB(*) 100 MG ONE (20:02)
[2018-08-19] MEDS: lamoTRIgine TAB(*) 100 MG PO SCH (21:36)
[2018-08-19] MEDS: hydrOXYzine HCL TAB* 25 MG PO SCH (22:01)
[2018-08-19] MEDS: Nicotine Patch Removal NOTE FOLLOW UP SCH (22:07)
[2018-08-19] MEDS: LORazepam TAB(*) 1 MG PO PRN (22:27)
[2018-08-20] MEDS: Citalopram TAB* 40 MG PO SCH (09:07)
[2018-08-20] MEDS: Multivitamins/Minerals TAB PO SCH (09:07)
[2018-08-20] MEDS: Nicotine PATCH 21 MG/24 HR* PATCH TRANSDERM SCH (09:08)
[2018-08-20] MEDS: Nitrofurantoin Macrocrystals* 100 MG CAP PO SCH ×2 (11:11→21:02)
[2018-08-20] MEDS: Al Hydrox/Mg Hydrox/Simet LIQ* 30 ML UDC PO PRN ×2 (19:08→21:37)
[2018-08-20] MEDS: Nicotine Patch Removal NOTE FOLLOW UP SCH (21:02)
[2018-08-20] MEDS: hydrOXYzine HCL TAB* 25 MG PO SCH (21:02)
[2018-08-20] MEDS: lamoTRIgine TAB(*) 100 MG PO SCH (21:03)
[2018-08-20] MEDS: LORazepam TAB(*) 1 MG PO PRN (22:33)
[2018-08-21] MEDS: Multivitamins/Minerals TAB PO SCH (07:49)
[2018-08-21] MEDS: Nitrofurantoin Macrocrystals* 100 MG CAP PO SCH ×2 (07:49→20:27)
[2018-08-21] MEDS: Nicotine PATCH 21 MG/24 HR* PATCH TRANSDERM SCH (07:49)
[2018-08-21] MEDS: Citalopram TAB* 40 MG PO SCH (07:49)
[2018-08-21] MEDS: Al Hydrox/Mg Hydrox/Simet LIQ* 30 ML UDC PO PRN ×3 (11:10→21:52)
--- NOTE | 2018-08-21 11:43 | PN ---
BSU: Group Therapy Note - Service Type Service Type: 57650 Group Psychotherapy - Cognitive Behavioral Group Therapy ( CBT):Patient was attentive and participatory in CBT programming this morning, and remained in good behavioral control. Patient expressed positive insights regarding relevant treatment interventions and goals.
--- NOTE | 2018-08-21 18:25 | PN ---
Subjective - Subjective Date of Service: 08/21/18 Service Type: 20291 Hosp care 15 min low complexity Subjective: Yvonne is doing well today. She has used her time here to make progress with her house. She has already had an offer on her home and she has accepted it. She is delighted and feeling well and happy. When asked what she will do in the future about her depression, should it return, she stated only, "I'm going to push myself." She will need additional help to find more coping skills for returning to her own place. Objective - General Observations Appearance: Neat Appears Stated Age: Yes Stature: WNL Posture: WNL Eye Contact: Average Behavior/Activity: WNL - Interaction Observations Attitude Towards Examiner: Cooperative Stated Mood: Euthymic Affect: Full Speech Pattern/Tone: Clear Thought Process: Coherent Perception: WNL Thought Content: WNL Hallucination Type: None Delusion Type: None - Cognitive Function Orientation: A&O x 4 Level of Consciousness: Awake, Alert, Appropriate Cognition: Impaired Cognition, Impaired Attention/Concentration, Impaired Ability to Abstract Estimated Intelligence: Normal Insight: Difficulty Acknowledging Presence of Psyciatric Problems Judgment Within Normal Limits: No Ability to Make Reasonable Decisions: Mildly Impaired - Medication Compliance Cooperative with Inpatient Medication Regimen: Yes - Group Participation Participates in Group Activities: Yes Assessment - Assessment Merits Inpatient Hospitalization: For Immediate Safety Clinical Impression: Yvonne is a 58-year-old woman with a history of one psychiatric hospitalization and a diagnosis of major depressive disorder who comes to the hospital with suicidal ideation in the context of financial stressors and social isolation. Plan - Plan Treatment Plan: Name: YVONNE DORADO Birthdate: 1960 [id number] Start Ativan at bedtime. Continue other medications. Encourage socialization. Continued Medication Management: Different Medication Medications: Current Medications Acetaminophen (Tylenol Tab*) 650 mg PO Q4H PRN PRN Reason: PAIN; OR TEMP >101 Last Admin: 08/19/18 01:26 Dose: 650 mg Al Hydrox/Mg Hydrox/Simethicone (Maalox Plus*) 30 ml PO Q4H PRN PRN Reason: INDIGESTION Last Admin: 08/21/18 16:01 Dose: 30 ml Citalopram Hydrobromide (Celexa Tab*) 40 mg PO DAILY MILANA Last Admin: 08/21/18 07:49 Dose: 40 mg Hydroxyzine HCl (Atarax Tab*) 25 mg PO BEDTIME [facility] Last Admin: 08/20/18 21:02 Dose: Not Given Lamotrigine (Lamictal Tab(*)) 250 mg PO BEDTIME MILANA Last Admin: 08/20/18 21:03 Dose: 250 mg Lorazepam (Ativan Tab(*)) 1 mg PO BEDTIME PRN PRN Reason: INSOMNIA Last Admin: 08/20/18 22:33 Dose: 1 mg Multivitamins/Minerals (Theragran/Minerals Tab*) 1 tab PO DAILY [facility] Last Admin: 08/21/18 07:49 Dose: 1 tab Nicotine (Nicotine Patch 21 Mg/24 Hr*) 1 patch TRANSDERM DAILY [facility] Last Admin: 08/21/18 07:49 Dose: 1 patch Nicotine Polacrilex (Nicotine Gum*) 2 mg PO Q2H PRN PRN Reason: CRAVING Last Admin: 08/18/18 02:25 Dose: 2 mg Nitrofurantoin Macrocrystals (Macrodantin*) 100 mg PO 0900,2099 [facility] Last Admin: 08/21/18 07:49 Dose: 100 mg Pharmacy Profile Note (Nicotine Patch Removal Note*) 1 note FOLLOW UP 2099 [facility] Last Admin: 08/20/18 21:02 Dose: 1 note - Discharge Plan Discharge Plan: Outpatient Follow Up
[2018-08-21] MEDS: hydrOXYzine HCL TAB* 25 MG PO SCH (20:26)
[2018-08-21] MEDS: lamoTRIgine TAB(*) 100 MG PO SCH (20:27)
[2018-08-21] MEDS: Nicotine Patch Removal NOTE FOLLOW UP SCH (20:28)
[2018-08-21] MEDS: LORazepam TAB(*) 1 MG PO PRN (22:12)
[2018-08-22 08:39] VITALS: BP 138/69
[2018-08-22] MEDS: Multivitamins/Minerals TAB PO SCH (09:16)
[2018-08-22] MEDS: Nicotine PATCH 21 MG/24 HR* PATCH TRANSDERM SCH (09:16)
[2018-08-22] MEDS: Citalopram TAB* 40 MG PO SCH (09:16)
[2018-08-22] MEDS: Nitrofurantoin Macrocrystals* 100 MG CAP PO SCH (09:17)
--- NOTE | 2018-08-22 13:06 | PN ---
BSU: Group Therapy Note - Service Type Service Type: 19622 Group Psychotherapy - Cognitive Behavioral Group Therapy ( CBT):Patient was attentive and participatory in CBT programming this morning, and remained in good behavioral control. Patient expressed positive insights regarding relevant treatment interventions and goals.
[2018-08-22] MEDS: Al Hydrox/Mg Hydrox/Simet LIQ* 30 ML UDC PO PRN (13:59)
--- NOTE | 2018-08-23 18:33 | DS ---
CC: [facility]; Dr. Holbrook DISCHARGE SUMMARY: DATE OF ADMISSION: 08/16/18 DATE OF DISCHARGE: 08/22/18 PROVIDER: Sofia Kilpatrick NP, in Psychiatry. SUPERVISING PHYSICIAN: Dr. Jimenez Simmons. DIAGNOSES: 1. Major depressive disorder, recurrent. 2. Generalized anxiety disorder. CONDITION AT THE TIME OF DISCHARGE: Norah is improved, psychiatrically cleared , more stable. She participated in groups and was social with select peers. Her family is agreeable to her discharge, as is Norah. She has done well here psychiatrically, tolerating new meds well. She will be attending [facility] in [place] and seeing Elizabeth Holbrook MD, for her primary care. MENTAL STATUS EXAMINATION: At the time of discharge, Norah is calm, cooperative , and makes good eye contact. She is alert and oriented x4. Her grooming is good. Her speech pace is normal. Her thought processes are logical. She is not psychotic or delusional. She denies AH, VH, SI, and HI. Her insight is fair. Her judgment is good. She is willing to follow up and she is urged to see a therapist. DISCHARGE INSTRUCTIONS TO THE PATIENT: A. Medications: 1. Citalopram 40 mg daily. 2. Hydroxyzine 25 mg at bedtime. 3. Lamictal 250 mg at bedtime. 4. Lorazepam 1 mg at bedtime p.r.n. for insomnia. 5. Multivitamin. 6. Macrodantin 100 mg b.i.d. for 2 more doses and then it is discontinued. B. Diet is regular. C. Activities: As tolerated. Norah is a smoker, but she has declined a referral to the [place] [employer]uit[employer] at this time. If she decides to access this free service in the future, she can contact the quit line toll- free at . There are no studies pending at the time of discharge. D. Followup care: She has an appointment at [facility] on 08/30/18, at 12:30 with her nurse practitioner, Yoana. She also has an appointment with her therapist, Yareli, on 08/31/18 at 4:00 p.m. E. Disposition: She is being discharged to her home, although she has decided to sell it. She will temporarily reside there until she gets a new residence. F. Substance abuse followup is not indicated. HOSPITAL COURSE: Part A: Chief Complaint: "I'm overwhelmed with a lot of stuff going on in my house." Norah is a 58-year-old white female, who lives alone at this point, who was brought to the emergency room by law enforcement of [facility] after a 9.45 was issued for her by the [facility]. Apparently , Norah has "skipped a few appointments" with her therapist at [facility], so that when she called her therapist to cancel again, the therapist said, "If I don't come in, they would send a deputy, so I went in." Norah is living alone for the first time in years. She has a son, whom she has not seen in over a year due to him being in [facility]. She states he is considered incompetent legally and he is not improving and he would not take medications. She is selling her home due to financial debt and she is going to instead spend less money and have money from her house if she moves to a 1-bedroom apartment. She states that this problem has been going on since [place] and her son is the reason for it. She felt alone and sad and depressed and that led her to have suicidal thoughts at that time. They have continued until this time. Her sleep has increased during the day, but she cannot sleep at night. She gets in bed by 9 or 10 p.m. and cannot sleep, so she will take hydroxyzine at times and then wake up in the morning at 8:30. She states she has a glass of water and goes back to bed and this cycle can repeat a few times. On a positive note, she does go to visit her cousin; nevertheless, it is because she cannot stand to be at home alone. Norah is having sleep disturbances. Her interest is low as demonstrated by her unwillingness to do chores around the house and take a shower. She feels guilty about it. Her energy is low. She cannot concentrate. She eats very little. She has psychomotor retardation, suicidal ideation, and is hallucinating the word "Satan" from time to time when it pops into her head. Part B: Psychiatric treatment was rendered. Norah was admitted to the adult behavioral unit and placed on q.15-minute checks for safety. She did advance to 30- minute checks. The patient did well on the unit and she went to groups. She interacted with peers very well. She tolerated medication changes well also. She believes that getting sleep has been the garcia to her feeling better. In fact, the day after she arrived, she had had a good night's sleep and she appeared bright and happy and reported that the hallucinations were reduced significantly and she was much less worried. Indeed, she was prepared to take charge of her personal affairs by getting paperwork signed for getting her house sold. She did, while she was here, get an offer on her house, which she arranged to have the papers signed from here. I did send her home with a script for lorazepam 1 mg at bedtime with the understanding that she should not use it every night. It is not clear to me whether she understood that request. She was taking Macrodantin, as she has an allergy to other antibiotics, because she had a urinary tract infection. She was here long enough that the only thing left were 2 more capsules that would finish up on 08/23/18 in the morning. Her symptoms have improved significantly. Her sleep is excellent, although she is still quite anxious that she will not sleep. Her interests have improved. She is eager to sell her house and she has taken steps to do that. She has also taken steps to take care of herself including taking a shower and keeping herself well groomed during her stay. Her energy is improved. She can concentrate. She is no longer having suicidal ideation and she is no longer thinking of the word "Satan" from time to time. She is future-oriented and is eager to leave and that is appropriate for Norah. She is doing rather well. SOFIA KILPATRICK, PIERCE [id number]/CPS #: [id number] [facility]
== END 2018-08-22 17:27 | disposition home or self-care (01) | DRG 751 ==
LOC: ED 16:06 → BSU 19:56
PROVIDERS: ADMIT Psychiatry & Neurology Psychiatry; ATTEND Psychiatry & Neurology Psychiatry
PROC: GZHZZZZ Group Psychotherapy (ICD-10-PCS; principal; 2018-08-17)
DX: F33.9 Major depressive disorder, recurrent, unspecified (principal); R45.851 Suicidal ideations; R44.3 Hallucinations, unspecified; F41.1 Generalized anxiety disorder; F17.210 Nicotine dependence, cigarettes, uncomplicated; I10 Essential (primary) hypertension; J44.9 Chronic obstructive pulmonary disease, unspecified; H26.9 Unspecified cataract; Z60.4 Social exclusion and rejection; G47.9 Sleep disorder, unspecified; Z59.9 Problem related to housing and economic circumstances, unspecified; Z81.8 Family history of other mental and behavioral disorders; Z90.49 Acquired absence of other specified parts of digestive tract; Z80.49 Family history of malignant neoplasm of other genital organs; Z88.1 Allergy status to other antibiotic agents; Z88.2 Allergy status to sulfonamides; Z98.1 Arthrodesis status; Z98.51 Tubal ligation status; Z82.49 Family history of ischemic heart disease and other diseases of the circulatory system; Z83.3 Family history of diabetes mellitus; Z80.9 Family history of malignant neoplasm, unspecified
CPT/HCPCS: 36415; 80053; 80307; 80320; 80329; 81003; 81015; 84443; 85025; 87077; 87086; 87186; 90853; 99222; 99231; 99232; 99238; 99284; A9270-GY; G0480

== ENCOUNTER 2021-12-05 22:18 | Observation (INO) ==
[2021-12-05] MEDS ORDERED: NS 0.9% 1000 ml BAG 2,000 ML IV ONE (22:25)
[2021-12-05 22:43] LABS: ABS Basophils 0.1 10^3/ul (0-0.2); ABS Eosinophils 0.1 10^3/ul (0-0.6); ABS Lymphocytes 3.2 10^3/ul (1.0-4.8); ABS Monocytes 0.3 10^3/ul (0-0.8); ABS Neutrophils 5.9 10^3/ul (1.5-7.7); Eosinophil % 1.2 %; Hematocrit 46 % (35-47); Hemoglobin 15.3 g/dL (12.0-16.0); Lymphocyte % 33.5 %; Mean Corpuscular HGB Conc 33 g/dL (31-36); Mean Corpuscular Hemoglobin 29 pg (27-31); Mean Corpuscular Volume 89 fL (80-97); Mean Platelet Volume 7.8 fL (7.4-10.4); Platelet Count 289 10^3/uL (150-450); Red Blood Count 5.21 10^6 /uL (3.70-4.87); Red Cell Distribution Width 14 % (10-15); White Blood Count 9.5 10^3/uL (3.5-10.8)
[2021-12-05 23:25] LABS: Albumin 3.9 g/dL (3.2-5.2); Albumin/Globulin Ratio 1.3 (1-3); C Reactive Protein 1.21 mg/L (<8.01); Calcium 9.7 mg/dL (8.6-10.3); Globulin 2.9 g/dL (2-4); Potassium 3.3 mmol/L (3.5-5.0); Total Bilirubin 0.6 mg/dL (0.2-1.0); Total Protein 6.8 g/dL (6.4-8.9); eGFR CKD-EPI 57.4 (>60)
[2021-12-05] MEDS ORDERED: Norepinephrine 16MCG/ML BAG NS 4,000 MCG/250 ML BAG IV SCH (23:45)
[2021-12-06] MEDS ORDERED: Iodixanol (CONTRAST) 320 MG/ML 100 ML SDV IV ONE (00:08)
[2021-12-06] MEDS ORDERED: Potassium EFFERVES 25 meq TAB PO ONE (00:28)
[2021-12-06] MEDS ORDERED: Droperidol 5 MG/2 ML 2 ML VIAL IV ONE (01:10)
[2021-12-06] MEDS ORDERED: Ondansetron 4 mg VIAL 2 MG/ML 2 ml VIAL IV PRN (03:12)
[2021-12-06] MEDS ORDERED: Lactated Ringers 1000 ml BAG 1,000 ML IV ONE ×2 (03:17→06:49)
[2021-12-06 04:27] LABS: Albumin 3.6 g/dL (3.2-5.2); Albumin/Globulin Ratio 1.6 (1-3); Globulin 2.3 g/dL (2-4); Potassium 4.4 mmol/L (3.5-5.0); Total Bilirubin 0.5 mg/dL (0.2-1.0); Total Protein 5.9 g/dL (6.4-8.9); eGFR CKD-EPI 80.8 (>60)
[2021-12-06 09:58] LABS: Urine Appearance Cloudy; Urine Bilirubin Negative (Negative); Urine Blood Negative (Negative); Urine Color Amber; Urine Glucose Negative (Negative); Urine Ketones Negative (Negative); Urine Nitrite Negative (Negative); Urine Protein Negative (Negative); Urine Urobilinogen Negative (Negative)
[2021-12-06 10:15] LABS: Urine Bacteria Absent (Absent); Urine Red Blood Cell Absent (Absent); Urine Squamous Epithelial Cell Present (Absent); Urine White Blood Cell 2+(11-20/hpf) (Absent)
[2021-12-06 10:25] LABS: Calcium (PTH Intact) 8.9 mg/dL (8.6-10.3)
[2021-12-07 06:17] LABS: ABS Eosinophils 0.1 10^3/ul (0-0.6); ABS Lymphocytes 1.6 10^3/ul (1.0-4.8); ABS Monocytes 0.8 10^3/ul (0-0.8); ABS Neutrophils 6.6 10^3/ul (1.5-7.7); Eosinophil % 1.1 %; Hematocrit 35 % (35-47); Hemoglobin 11.6 g/dL (12.0-16.0); Mean Corpuscular HGB Conc 33 g/dL (31-36); Mean Corpuscular Hemoglobin 29 pg (27-31); Mean Corpuscular Volume 87 fL (80-97); Mean Platelet Volume 7.9 fL (7.4-10.4); Platelet Count 202 10^3/uL (150-450); Red Blood Count 4.02 10^6 /uL (3.70-4.87); Red Cell Distribution Width 14 % (10-15); White Blood Count 9.1 10^3/uL (3.5-10.8)
[2021-12-07 06:43] LABS: Albumin 3.2 g/dL (3.2-5.2); Albumin/Globulin Ratio 1.6 (1-3); Magnesium 1.6 mg/dL (1.9-2.7); Potassium 4.1 mmol/L (3.5-5.0); Total Bilirubin 0.3 mg/dL (0.2-1.0); Total Protein 5.2 g/dL (6.4-8.9); eGFR CKD-EPI 97.7 (>60)
[2021-12-07] MEDS ORDERED: Piperacillin/Tazobac ADVAN 3.375 GM in NS 0.9% 100 ml BAG 100 ML IV ONE (07:55)
[2021-12-07] MEDS ORDERED: Zosyn per Pharmacy NOTE FOLLOW UP SCH (08:00)
[2021-12-07] MEDS: ZOSYN 3.375 GM Q8H per EXTENDED INFUSION IV SCH ×2 (12:30→21:30)
[2021-12-08] MEDS: ZOSYN 3.375 GM Q8H per EXTENDED INFUSION IV SCH ×2 (04:53→12:40)
[2021-12-08 05:57] LABS: Hematocrit 36 % (35-47); Hemoglobin 12.4 g/dL (12.0-16.0); Mean Corpuscular HGB Conc 34 g/dL (31-36); Mean Corpuscular Hemoglobin 30 pg (27-31); Mean Corpuscular Volume 87 fL (80-97); Mean Platelet Volume 7.9 fL (7.4-10.4); Platelet Count 209 10^3/uL (150-450); Red Blood Count 4.19 10^6 /uL (3.70-4.87); Red Cell Distribution Width 13 % (10-15); White Blood Count 7.4 10^3/uL (3.5-10.8)
[2021-12-08 06:28] LABS: Albumin 3.7 g/dL (3.2-5.2); Albumin/Globulin Ratio 1.4 (1-3); Calcium 9.8 mg/dL (8.6-10.3); Globulin 2.6 g/dL (2-4); Potassium 4.1 mmol/L (3.5-5.0); Total Bilirubin 0.4 mg/dL (0.2-1.0); Total Protein 6.3 g/dL (6.4-8.9); eGFR CKD-EPI 98.1 (>60)
[2021-12-08 11:57] VITALS: BP 149/82
[2021-12-09 15:54] LABS: ALP Liver 1 230.5 IU/L (16.2-70.2); ALP Liver 2 3.3 IU/L (0.0-5.8); ALP Placental Not Present; Alkaline Phosphate 334 U/L (35 - 104)
== END 2021-12-08 14:15 | disposition home or self-care (01) ==
LOC: EDHOLD 22:18 → ED 22:18 → SUATTDRO 12-06 03:12 → SSU 12-06 14:46
PROVIDERS: ADMIT Internal Medicine; ATTEND Internal Medicine